=== PATIENT | male | born 1965 | race Caucasian/White ===

== ENCOUNTER → 2016-05-18 | Outpatient (CLI) | payer OTHER ==
--- NOTE | 2016-05-18 22:19 | DI ---
MRI LOW EXTREMITY JNT W/O CN,05/18/2016 1:40 PM: Clinical History: Knee pain Previous Exam: None at this facility. Findings: Multiplanar MR images are obtained through the right knee without contrast. Bony alignment is anatomic. No fractures are seen. Marrow signal is preserved. There is a large knee joint effusion. The anterior and posterior cruciate ligaments are intact. The medial and lateral collateral ligaments are also intact. There is a complex tear of the medial meniscus involving the posterior horn and body. The lateral meniscus is intact. Surrounding musculature is unremarkable. The major vascular flow voids are unremarkable. There is some fissuring of the articular cartilage of the undersurface of the patella without any ful l-thickness defects. There is no evidence of Alexandre's cyst. There is some mild thinning of the articular cartilage of the weightbearing surface of the medial fem oral condyle. Impression: 1. Complex tear of the posterior horn and body of the medial meniscus with a large knee joint effusio n. 2. 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
== END ==
LOC: MRI 13:33
PROVIDERS: ATTEND Orthopaedic Surgery
DX: M25.561 Pain in right knee (principal); S83.231A Complex tear of medial meniscus, current injury, right knee, initial encounter; M94.261 Chondromalacia, right knee
CPT/HCPCS: 73721

== ENCOUNTER 2016-06-07 09:38 | Day surgery (SDC) | payer OTHER ==
[~2016-06-07 09:38] MED LIST: LIDOCAINE W/ SODIUM BICARB 0.5 ML SYR ONE; Lactated Ringers 1,000 ML PRIMARY IV ONE; ceFAZolin Inj 2gm (Premix) 50 ML IV ONE
[2016-06-07 10:00] VITALS: RESP 16
[2016-06-07] MEDS ORDERED: MIDAZOLAM 5 MG/1 ML ONE (10:20)
[2016-06-07] MEDS ORDERED: fentaNYL Inj 250 MCG/5 ML VIAL ONE (10:20)
[2016-06-07] MEDS ORDERED: LIDOCAINE MPF 2% - 5 ML (20 MG/1 ML) ONE (10:22)
--- NOTE | 2016-06-07 10:40 | OPS CRUTCH ---
Referral Reason: Gait Training O: Patient was instructed in the use of crutches with gait belt, both on level surfaces and on stairs. P: No further therapy is indicated at this time. MTDD
[2016-06-07] MEDS ORDERED: Ropivacaine 0.2% VIAL 20 ML ONE (10:42)
[2016-06-07] MEDS ORDERED: EPINEPHrine Inj (1:1,000) 30mg/30ml vial ONE (11:32)
[2016-06-07] MEDS ORDERED: HYDROmorphone 2 MG/1 ML ONE (11:54)
[2016-06-07] MEDS ORDERED: KETOROLAC 30 MG/1 ML VIAL ONE (12:06)
[2016-06-07] MEDS ORDERED: Lactated Ringers 1,000 ML PRIMARY IV ONE (12:07)
[2016-06-07] MEDS ORDERED: BETAMET ACET/BETAMET NA PH 6 MG/1 ML - 5 ML ONE (12:07)
[2016-06-07] MEDS ORDERED: MORPHINE SULFATE 2 MG/1 ML IVP PRN (12:25)
[2016-06-07] MEDS ORDERED: BISACODYL 5 MG TABLET PO PRN (12:25)
[2016-06-07] MEDS ORDERED: MAG HYDROX/AL HYDROX/SIMETH 30 ML SUSP PO PRN (12:25)
[2016-06-07] MEDS ORDERED: ACETAMINOPHEN 325 MG TABLET PO PRN (12:25)
[2016-06-07] MEDS ORDERED: Prochlorperazine Tab 10 MG TAB PO PRN (12:25)
[2016-06-07] MEDS ORDERED: KETOROLAC 15 MG/1 ML VIAL IVP PRN (12:25)
[2016-06-07] MEDS ORDERED: Ondansetron ODT Tab 8 MG TAB PO PRN (12:25)
[2016-06-07] MEDS ORDERED: CALCIUM CARBONATE 500 MG (TUMS) CHEWABLE TABLET PO PRN (12:25)
[2016-06-07] MEDS ORDERED: IBUPROFEN 400 MG TABLET PO PRN (12:25)
[2016-06-07] MEDS ORDERED: diphenhydrAMINE 25 MG CAPSULE PO PRN (12:25)
[2016-06-07] MEDS ORDERED: NORMAL SALINE 10 ML SYRINGE FLUSH IVP PRN (12:25)
[2016-06-07] MEDS ORDERED: HYDROcodone-APAP 7.5 MG-325 MG TABLET PO PRN (12:25)
[2016-06-07] MEDS ORDERED: BISACODYL 10 MG SUPPOSITORY RECTAL PRN (12:25)
[2016-06-07] MEDS ORDERED: ONDANSETRON 4 MG/2 ML VIAL IVP PRN (12:25)
[2016-06-07] MEDS ORDERED: Lactated Ringers 1,000 ML PRIMARY IV SCH (12:30)
[2016-06-07] MEDS ORDERED: HYDROcodone-APAP 7.5 MG-325 MG TABLET PO ONE (13:58)
[2016-06-07 14:22] VITALS: TEMP 98.4
--- NOTE | 2016-06-07 14:31 | OPS CRUTCH ---
Diagnosis : Knee Cryo Cuff Referral Reason: Knee Cryo Cuff O: The patient was also issued a knee Cryo-Cuff and instructed in its proper use and care. P: No further therapy is indicated at this time. MTDD
== END 2016-06-07 14:00 | disposition home or self-care (01) ==
LOC: SDSC 09:38
PROVIDERS: ATTEND Orthopaedic Surgery
DX: S83.241A Other tear of medial meniscus, current injury, right knee, initial encounter (principal); S83.31XA Tear of articular cartilage of right knee, current, initial encounter
CPT/HCPCS: 29881; 97116; J0171; J0690; J0702; J1885; J2704; J2795; J3010; J1170; J2001; J2250; J7120